=== PATIENT | male | born 1980 | race Caucasian/White ===

== ENCOUNTER 2017-06-09 18:31 | Emergency (ER) | payer OTHER ==
[~2017-06-09] VITALS: Ht 180.3 cm; Wt 115.9 kg
[~2017-06-09 18:31] MED LIST: AUGM875T27 PO; LEVO10VL PO; MULTCAP PO; NEXI40GR PO; PRAZ1CAP PO; PRAZ5CAP PO; TOPA25TA PO; TOPIPOW3 PO; TRAZ100T2 PO; VENL50TA2 PO
[2017-06-09] MEDS ORDERED: OXYC-517 (18:58)
[2017-06-09] MEDS ORDERED: ZOLO100T (18:58)
[2017-06-09] MEDS ORDERED: BUPR150T5 (18:58)
[2017-06-09] MEDS ORDERED: CYCL10TA (18:58)
[2017-06-09] MEDS ORDERED: PRAZ2CAP (18:58)
[2017-06-09] MEDS ORDERED: PROT1TAB2 (18:58)
[2017-06-09] MEDS ORDERED: TYLE325T5 (18:58)
[2017-06-09] MEDS ORDERED: TESTOSTERON (18:58)
[2017-06-09] MEDS ORDERED: LIPI80TA (18:58)
[2017-06-09] MEDS ORDERED: HYDROmorphone HCL 1 MG/ML SYRINGE (J1170) IM ONE (21:15)
[2017-06-09] MEDS ORDERED: CEPHALEXIN 500 MG CAP PO ONE (21:15)
[2017-06-09 21:31] LABS: BASO # 0.1 10^3/uL (0.0-0.2); BASO % 0.8 % (0.0-1.0); EOS # 0.2 10^3/uL (0.0-0.50); EOS % 2.5 % (0.0-3.0); IMMATURE GRANULOCYTE % 0.2 % (0-0); LYMPH # 2.4 10^3/uL (1.5-4.5); LYMPH % 28.5 % (24.0-44.0); MEAN CORPUSCULAR HEMOGLOBIN 29.1 pg (27.0-33.0); MEAN CORPUSCULAR HGB CONC 34.7 g/dl (32.0-36.5); MEAN CORPUSCULAR VOLUME 84.1 fl (80.0-96.0); MONO # 0.6 10^3/uL (0.0-0.8); MONO % 6.5 % (0.0-5.0); NEUTROPHILS # 5.2 10^3/uL (1.8-7.7); NEUTROPHILS % 61.5 % (36.0-66.0); PLATELET COUNT, AUTOMATED 223 10^3/uL (150-450); WHITE BLOOD COUNT 8.5 10^3/uL (4.0-10.0)
[2017-06-09 21:58] VITALS: BP 142/86
[2017-06-09] MEDS ORDERED: KEFL500C17 PO (22:33)
== END 2017-06-09 22:41 | disposition home or self-care (01) ==
LOC: M ED 18:31
DX: G89.18 Other acute postprocedural pain (principal); I10 Essential (primary) hypertension; E03.9 Hypothyroidism, unspecified; F41.9 Anxiety disorder, unspecified; F33.9 Major depressive disorder, recurrent, unspecified; F43.10 Post-traumatic stress disorder, unspecified; G43.909 Migraine, unspecified, not intractable, without status migrainosus; Z79.899 Other long term (current) drug therapy; Z98.890 Other specified postprocedural states
CPT/HCPCS: 85025; 96372; 99282; J1170

== ENCOUNTER 2017-10-19 20:03 | Emergency (ER) | payer OTHER | END 2017-10-19 21:42 | disposition home or self-care (01) | LOC: M ED 20:03 | DX: Z48.89 Encounter for other specified surgical aftercare (principal); I10 Essential (primary) hypertension; K21.9 Gastro-esophageal reflux disease without esophagitis; E03.9 Hypothyroidism, unspecified; F41.9 Anxiety disorder, unspecified; F33.9 Major depressive disorder, recurrent, unspecified; F43.10 Post-traumatic stress disorder, unspecified; Z79.899 Other long term (current) drug therapy; Z79.890 Hormone replacement therapy | CPT/HCPCS: 99283 ==

== ENCOUNTER → 2020-11-07 | Outpatient (CLI) | payer OTHER ==
[~2020-11-07] MED LIST changes: +BUPR150T5; +CYCL-707; +KEFL500C17 PO; +LEVO100I PO; -LEVO10VL PO; +LIPI80TA; +OXYC-517; +PRAZ2CAP; +PROT1TAB2; +TESTOSTERON; +TYLE325T5; +ZOLO100T
--- NOTE | 2020-11-07 16:14 | REP ---
INDICATION: PAIN LT SHOULDER. COMPARISON: None. TECHNIQUE: Axial, oblique coronal and oblique sagittal imaging planes utilized. T1 and T2 weighted scans are obtained in the usual fashion with without fat saturation. FINDINGS: Glenohumeral and acromioclavicular joints are normally aligned. Cortical and medullary bone signal intensity are normal except for some marrow edema on either side of hypertrophied AC joint. There is a small quantity of fluid in the AC joint. Findings consistent with early osteoarthritis. No evidence of occult fracture. No significant glenohumeral effusion is seen. Superior labrum appears intact. The anterior cartilaginous labrum appears to be unusually large. Developmental variant versus displaced labral cartilage. The glenoid and humeral head articular cartilage appear intact. No paralabral cyst is seen. The infraspinatus and subscapularis tendons appear intact. There is no evidence of supraspinatus cuff tear. There is some tendinitis tendinosis change in the distal supraspinatus tendon however. IMPRESSION: Anterior glenoid labral cartilage is unusually large versus redundant synovium in the anterior aspect of the joint on axial images. Tendinitis tendinosis change in the supraspinatus tendon. Early osteoarthritic hypertrophy and marrow edema in the AC joint. <Electronically signed by Cali Amin > 11/07/20 [id number]
== END ==
LOC: M PLARAD 13:48
PROVIDERS: ATTEND Physician Assistant Medical
DX: M25.512 Pain in left shoulder (principal)

== ENCOUNTER → 2020-12-31 | Outpatient (CLI) | payer OTHER ==
--- NOTE | 2021-01-02 00:52 | ECWPNPC ---
PATIENT NAME: ROB OWENS : 1980 GENDER: MALE VISIT DATE: 12/31/2020 DISCHARGE DATE: 12/31/20921 VISIT LOCKED DATE TIME: PHYSICIAN: DEJUAN DAWSON RESOURCE: DEJUAN DAWSON REASON FOR APPOINTMENT 1. SHOULDER HISTORY OF PRESENT ILLNESS DEPRESSION SCREENING: PHQ-9 LITTLE INTEREST OR PLEASURE IN DOING THINGSSEVERAL DAYS FEELING DOWN, DEPRESSED, OR HOPELESSSEVERAL DAYS TROUBLE FALLING OR STAYING ASLEEP, OR SLEEPING TOO MUCHNEARLY EVERY DAY FEELING TIRED OR HAVING LITTLE ENERGYNEARLY EVERY DAY POOR APPETITE OR OVEREATING SEVERAL DAYS FEELING BAD ABOUT YOURSELF-OR THAT YOU ARE A FAILURE OR HAVE LET YOURSELF OR YOUR FAMILY DOWN SEVERAL DAYS TROUBLE CONCENTRATING ON THINGS, SUCH READING THE NEWSPAPER OR WATCHING TELEVISION MORE THAN HALF THE DAYS MOVING OR SPEAKING SO SLOWLY THAT OTHER PEOPLE COULD HAVE NOTICED. OR THE OPPOSITE- BEING SO FIDGETY OR RESTLESS THAT YOU HAVE BEEN MOVING AROUND A LOT MORE THAN USUALNOT AT ALL THOUGHTS THAT YOU WOULD BE BETTER OFF , OR OF HURTING YOURSELF IN SOME WAY?NOT AT ALL TOTAL SCORE:12 INTERPRETATIONMODERATE DEPRESSION PHQ-2 (2015 EDITION) LITTLE INTEREST OR PLEASURE IN DOING THINGS?SEVERAL DAYS FEELING DOWN, DEPRESSED, OR HOPELESS?SEVERAL DAYS TOTAL SCORE2 GENERAL: 40-YEAR-OLD GENTLEMAN [facility] [place] [facility]. THIS BEGAN APPROXIMATELY ONE YEAR AGO WITHOUT PRECIPITATING EVENT. REPORTING LEVEL VIII/X VAS PAIN THAT IS CONSTANT AND ACHING EVEN AT REST. PAIN IS AGGRAVATED WITH RANGE OF JOINT MOTION OF THE ARM. PAIN IS SPECIFICALLY OVER THE SHOULDER AND DOES NOT RADIATE INTO SCAPULAR AREA. - - -. FALL RISK SCREENING: SCREENING : NO FALLS REPORTED IN THE LAST YEAR , : NO FALLS REPORTED IN THE LAST YEAR. PAIN SCREENING: PATIENT HAS A COMPLAINT OF ACUTE OR CHRONIC PAIN :YES LOCATION OF PAIN:LEFT SHOULDER FEELS ALOT OF PAIN IN , LOW BACK INTENSITY OF PAIN (SCALE OF 1 TO 10):8 WHAT DOES YOUR PAIN FEEL LIKE:ACHING, BURNING, SORE DURATION:CONTINOUS, CONSTANT, ALL DAY PAIN IS INCREASED BY:ACTIVITIES PAIN IS DECREASED BY:USE OF PAIN MEDICATIONS, OTHERS ICE/HEAT NURSING NOTE: - - -. PAIN CENTER INTAKE QUESTIONS: DO YOU HAVE A HISTORY OF MRSA? :NO DO YOU TAKE A BLOOD THINNERS? :NO DO YOU HAVE ANY BLEEDING DISORDERS? :NO ANY NEW NUMBNESS OR WEAKNESS IN YOUR LEGS OR ARMS? :YES WEAKNESS LEFT ARM " FROM THE NECK TO ELBOW AREA " ANY PACEMAKER,DEFIBRILLATOR, OR DORSAL COLUMN STIMULATOR? :NO DO YOU HAVE ANY RASHES OR OPEN SORES? :NO ARE YOU ALLERGIC TO IV DYE? :NO ARE YOU DIABETIC? :NO ANY NEW PROBLEMS WITH YOUR MEDICATIONS? :NO HAVE YOU RECEIVED A VACCINE IN THE PAST 30 DAYS? :YES 2ND COVID SHOT 12/11/2020 DO YOU PLAN TO RECEIVE A VACCINE IN THE NEXT 21 DAYS? :NO DO YOU NEED ANY PRESCRIPTION? :NO DO YOU TAKE ANY IMMUNOSUPPRESSIVE MEDICATIONS? :NO IS THERE A CHANCE YOU COULD BE ? :NO ARE YOU BREAST FEEDING? :NO CURRENT MEDICATIONS TAKING ATORVASTATIN CALCIUM 80 MG TABLET 1 TABLET ORALLY ONCE A DAY TAKING CHOLECALCIFEROL 25 MCG (1000 UT) CAPSULE 1 CAPSULE ORALLY ONCE A DAY TAKING CYCLOBENZAPRINE HCL 10 MG TABLET 1 TABLET AT BEDTIME NEEDED ORALLY ONCE A DAY TAKING DICLOFENAC 1% CREAM CAPSULE 1 CAPSULE NEEDED ORALLY GEL NEEDED FOUR TIMES A DAY, NOTES: GEL TAKING LEVOTHYROXINE SODIUM 125 MCG TABLET 1 TABLET IN THE MORNING ON AN EMPTY STOMACH ORALLY ONCE A DAY TAKING PANTOPRAZOLE SODIUM 40 MG TABLET DELAYED RELEASE 1 TABLET ORALLY ONCE A DAY TAKING PRAZOSIN HCL 5 MG CAPSULE 1 CAPSULE AT BEDTIME ORALLY ONCE A DAY TAKING SERTRALINE HCL 100 MG TABLET 1 TABLET ORALLY ONCE A DAY TAKING TOPIRAMATE 50 MG TABLET 1 TABLET ORALLY ONCE A DAY MEDICATION LIST REVIEWED AND RECONCILED WITH THE PATIENT PAST MEDICAL HISTORY BACK PAIN LEFT SHOULDER PAIN POST TRAUMATIC STRESS DISORDER SLEEP APNEA SYNDROMES TINNITUS BURSITIS ALLERGIES N.K.D.A. SURGICAL HISTORY CARPAL TUNNEL RIGHT HAND 2017 CYST REMOVED ON LEFT HAND 2018 FAMILY HISTORY FATHER: ALIVE MOTHER: UNKNOWN SON(S): ALIVE DAUGHTER(S): ALIVE 1 SON(S) , 1 DAUGHTER(S) - HEALTHY. ONE HALF BROTHER. SOCIAL HISTORY GENERAL: TOBACCO USE ARE YOU A:NONSMOKER LATEX QUESTIONNAIRE LATEX ALLERGY : HAVE YOU EVER DEVELOPED ANY TYPE OF REACTION AFTER HANDLING LATEX PRODUCTS SUCH RUBBER GLOVES, CONDOMS, DIAPHRAGMS, BALLOONS, SOCKS, OR UNDERWEAR?NO LATEX ALLERGY : HAVE YOU EVER DEVELOPED ANY TYPE OF REACTION DURING OR AFTER DENTAL APPOINTMENT, VAGINAL/RECTAL EXAMINATION, SURGICAL PROCEDURE, OR ANY OTHER EXPOSURE?NO LATEX RISK : HAVE YOU EVER HAD ANY DIFFICULTY BREATHING OR HIVES AFTER EATING OR HANDLING ANY FRUITS, OR VEGETABLES; SUCH KIWI, BANANAS, STONE FRUITS, OR CHESTNUTSNO LATEX RISK : DO YOU HAVE A PREVIOUS PERSONAL HISTORY OF MORE THAN NINE SURGERIES, SPINA BIFIDA, OR REPEATED CATHERIZATIONS? NO LATEX RISK : ARE YOU FREQUENTLY EXPOSED TO LATEX PRODUCTS IN YOUR OCCUPATION?NO DATE ASKED : 12/31/2020 ALCOHOL USE: NO. RECREATIONAL DRUG USE DRUG USE?NO LANGUAGE LANGUAGES SPOKEN:CHADIAN LEARNING BARRIERS / SPECIAL NEEDS BARRIERS TO LEARNING?NO HEARING IMPAIRED?YES :HEARING AIDES " NOT GOOD AT WEARING IT " VISION IMPAIRED?YES :CORRECTIVE LENSES COGNITIVELY IMPAIRED?NO READINESS TO LEARN?YES LEARNING PREFERENCES?YES :HANDOUTS PATIENT STATED THAT HE HAS SHORT TERM MEMORY LEARNING CAPABILITIES PRESENT?YES EMOTIONAL BARRIERS?NO SPECIAL DEVICES?YES :CANE NEEDED STEEL SASH ERECTOR NEEDED?NO HOSPITALIZATION/MAJOR DIAGNOSTIC PROCEDURE NO HOSPITALIZATION HISTORY. REVIEW OF SYSTEMS CONSTITUTIONAL: ANY RECENT FEVER NO . CHILLS NO . WEIGHT CHANGE OF UNKNOWN REASONS NO . GASTROENTEROLOGY: NEW UNEXPLAINABLE CHANGES IN BOWEL CONTROL NO . CONSTIPATION NO . GENITOURINARY: ANY NEW CHANGE IN BLADDER CONTROL? NO . NEUROLOGY: NEW ONSET DIZZINESS OR NEUROLOGICAL CHANGES NOT MENTIONED NO . NEW NUMBNESS OR PAIN PATTERNS NOT MENTIONED AND PERTINENT TO TODAY'S VISIT NO . CARDIOLOGY: NEW CHEST PRESSURE NO . PATIENT DENIES NO . RESPIRATORY: UNEXPLAINABLE COUGH NO . NEW SHORTNESS OF BREATH NO . VITAL SIGNS WT 278.2 LBS, HT 60 IN, BMI 54.33 INDEX, BP 137/83 MM HG, HR 90 /MIN, RR 18 /MIN, TEMP 98.0 F, OXYGEN SAT % 96%, SAFE IN ENV? (Y/N) YES, NA INITIALS AW 0833T.ELVA WEEKS. EXAMINATION GENERAL EXAMINATION: GENERALNO ACUTE DISTRESS, WELL NOURISHED AND HYDRATED. PSYCH FLAT AFFECT. NECK:NO LYMPHADENOPATHY, SUPPLE, NO THYROMEGALLY. LUNGS:CLEAR TO AUSCULTATION BILATERALLY, NO WHEEZES, RHONCHI, RALES. HEART:NO MURMURS, REGULAR RATE AND RHYTHM. MUSCULOSKELETAL: LEFT SHOULDER-TENDER WITH PALPATION.MILD SWELLING APPRECIATED .NO REDDNESS. MUSCLE STRENGTH TESTING 5/5 BILATERAL UPPER EXTREMITIES.ROJM FULL BUT WITH INCEASE IN PAIN ABOVE SHOULDER HEIGHT WITH LEFT ARM.. ASSESSMENTS LEFT SHOULDER TENDONITIS - M77.8 (PRIMARY) TREATMENT LEFT SHOULDER TENDONITIS START KETOROLAC TROMETHAMINE TABLET, 10 MG, 1 TABLET WITH FOOD OR MILK NEEDED, ORALLY, EVERY 6 HRS, 5 DAY(S), 20 [facility]ERRAL [facility] REASON:1 YEAR HX OF LEFT SHOULDER PAIN DESCRIBED CONSTANT AND INCREASES WITH ROJM OR USE OF LEFT ARM PROCEDURE CODES FA211 ESTABILISHED PATIENT [facility] CHARGE DISPOSITION & COMMUNICATION FOLLOW UP 2 MONTHS (REASON: FOLLOW UP ORTHOPEDIC/DR. Miguelito ORR REFERRAL) ELECTRONICALLY SIGNED BY ROX RANDHAWA ON 01/01/2021 AT 09:50 AM EDT DISCLAIMER : THIS IS A VISIT SUMMARY EXTRACTED FROM THE [employer] CHART. IT IS NOT A COPY OF THE [employer] PROGRESS NOTE. NATHANIEL
== END ==
LOC: M PAIN 08:30
PROVIDERS: ATTEND Nurse Practitioner Family
DX: M77.8 Other enthesopathies, not elsewhere classified (principal); M25.512 Pain in left shoulder; F43.10 Post-traumatic stress disorder, unspecified; G47.30 Sleep apnea, unspecified; Z79.899 Other long term (current) drug therapy

== ENCOUNTER → 2021-03-01 | Outpatient (CLI) | payer OTHER ==
--- NOTE | 2021-03-02 04:09 | ECWPNPC ---
PATIENT NAME: ROB OWENS : 1980 GENDER: MALE VISIT DATE: 03/01/2021 DISCHARGE DATE: 03/01/21 1128 VISIT LOCKED DATE TIME: PHYSICIAN: DEJUAN DAWSON RESOURCE: DEJUAN DAWSON REASON FOR APPOINTMENT 1. FOLLOW UP ORTHOPEDIC/DR. Miguelito ORR REFERRAL HISTORY OF PRESENT ILLNESS GENERAL: ROB IS BEING EVALUATED FOR PERSISTENT LEFT SHOULDER PAIN. MY RECOMMENDATION AT INITIAL EVALUATION WAS TO HAVE AN ORTHOPEDIC EVALUATION. PATIENT STATES THAT [facility] NEEDED TO SEND IN REFERRAL. HE DOES NOT HAVE TRIGGER POINTS OR ANYTHING THAT WE CAN HELP WITH. HE HAD AN INJECTION BY ORTHOPEDICS AT THE [facility] INTO HIS LEFT SHOULDER RECENTLY THAT GAVE HIM A COUPLE DAYS OF IMPROVEMENT. -. FALL RISK SCREENING: SCREENING : NO FALLS REPORTED IN THE LAST YEAR. PAIN SCREENING: PATIENT HAS A COMPLAINT OF ACUTE OR CHRONIC PAIN :YES LOCATION OF PAIN:LEFT SHOULDER INTENSITY OF PAIN (SCALE OF 1 TO 10):9 WHAT DOES YOUR PAIN FEEL LIKE:BURNING, CONTINOUS, SHARP, TENDER, SORE DURATION:CONTINOUS, CONSTANT, ALL DAY PAIN IS INCREASED BY:ACTIVITIES PAIN IS DECREASED BY:OTHERS NOTHING REALLY, BIO OIL NURSING NOTE: -. PAIN CENTER INTAKE QUESTIONS: DO YOU HAVE A HISTORY OF MRSA? :NO DO YOU TAKE A BLOOD THINNERS? :NO DO YOU HAVE ANY BLEEDING DISORDERS? :NO ANY NEW NUMBNESS OR WEAKNESS IN YOUR LEGS OR ARMS? :YES WEAKNESS LEFT ARM " FROM THE NECK TO ELBOW AREA " ANY PACEMAKER,DEFIBRILLATOR, OR DORSAL COLUMN STIMULATOR? :NO DO YOU HAVE ANY RASHES OR OPEN SORES? :NO ARE YOU ALLERGIC TO IV DYE? :NO ARE YOU DIABETIC? :NO ANY NEW PROBLEMS WITH YOUR MEDICATIONS? :NO HAVE YOU RECEIVED A VACCINE IN THE PAST 30 DAYS? :YES 2ND COVID SHOT 12/11/2020 DO YOU PLAN TO RECEIVE A VACCINE IN THE NEXT 21 DAYS? :NO DO YOU NEED ANY PRESCRIPTION? :NO DO YOU TAKE ANY IMMUNOSUPPRESSIVE MEDICATIONS? :NO IS THERE A CHANCE YOU COULD BE ? :NO ARE YOU BREAST FEEDING? :NO CURRENT MEDICATIONS TAKING ATORVASTATIN CALCIUM 80 MG TABLET 1 TABLET ORALLY ONCE A DAY TAKING CHOLECALCIFEROL 25 MCG (1000 UT) CAPSULE 1 CAPSULE ORALLY ONCE A DAY TAKING CYCLOBENZAPRINE HCL 10 MG TABLET 1 TABLET AT BEDTIME NEEDED ORALLY ONCE A DAY TAKING DICLOFENAC 1% CREAM CAPSULE 1 CAPSULE NEEDED ORALLY GEL NEEDED FOUR TIMES A DAY, NOTES: GEL TAKING LEVOTHYROXINE SODIUM 125 MCG TABLET 1 TABLET IN THE MORNING ON AN EMPTY STOMACH ORALLY ONCE A DAY TAKING PANTOPRAZOLE SODIUM 40 MG TABLET DELAYED RELEASE 1 TABLET ORALLY ONCE A DAY TAKING PRAZOSIN HCL 5 MG CAPSULE 1 CAPSULE AT BEDTIME ORALLY ONCE A DAY TAKING SERTRALINE HCL 100 MG TABLET 1 TABLET ORALLY ONCE A DAY TAKING TOPIRAMATE 50 MG TABLET 1 TABLET ORALLY ONCE A DAY TAKING KETOROLAC TROMETHAMINE 10 MG TABLET 1 TABLET WITH FOOD OR MILK NEEDED ORALLY EVERY 6 HRS MEDICATION LIST REVIEWED AND RECONCILED WITH THE PATIENT PAST MEDICAL HISTORY BACK PAIN LEFT SHOULDER PAIN POST TRAUMATIC STRESS DISORDER SLEEP APNEA SYNDROMES TINNITUS BURSITIS 2ND COVID SHOT 12/11/2020 ALLERGIES N.K.D.A. SOCIAL HISTORY GENERAL: TOBACCO USE ARE YOU A:NONSMOKER LATEX QUESTIONNAIRE LATEX ALLERGY : HAVE YOU EVER DEVELOPED ANY TYPE OF REACTION AFTER HANDLING LATEX PRODUCTS SUCH RUBBER GLOVES, CONDOMS, DIAPHRAGMS, BALLOONS, SOCKS, OR UNDERWEAR?NO LATEX ALLERGY : HAVE YOU EVER DEVELOPED ANY TYPE OF REACTION DURING OR AFTER DENTAL APPOINTMENT, VAGINAL/RECTAL EXAMINATION, SURGICAL PROCEDURE, OR ANY OTHER EXPOSURE?NO LATEX RISK : HAVE YOU EVER HAD ANY DIFFICULTY BREATHING OR HIVES AFTER EATING OR HANDLING ANY FRUITS, OR VEGETABLES; SUCH KIWI, BANANAS, STONE FRUITS, OR CHESTNUTSNO LATEX RISK : DO YOU HAVE A PREVIOUS PERSONAL HISTORY OF MORE THAN NINE SURGERIES, SPINA BIFIDA, OR REPEATED CATHERIZATIONS? NO LATEX RISK : ARE YOU FREQUENTLY EXPOSED TO LATEX PRODUCTS IN YOUR OCCUPATION?NO DATE ASKED : 03/01/2021 ALCOHOL USE: NO. 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 CHILLS NO . WEIGHT CHANGE OF UNKNOWN REASONS NO . GASTROENTEROLOGY: NEW UNEXPLAINABLE CHANGES IN BOWEL CONTROL NO . CONSTIPATION NO . GENITOURINARY: ANY NEW CHANGE IN BLADDER CONTROL? NO . NEUROLOGY: NEW ONSET DIZZINESS OR NEUROLOGICAL CHANGES NOT MENTIONED NO . NEW NUMBNESS OR PAIN PATTERNS NOT MENTIONED AND PERTINENT TO TODAY'S VISIT NO . CARDIOLOGY: NEW CHEST PRESSURE NO . PATIENT DENIES NO . RESPIRATORY: UNEXPLAINABLE COUGH NO . NEW SHORTNESS OF BREATH NO . VITAL SIGNS WT 266.2 LBS, HT 60 IN, BMI 51.98 INDEX, BP 137/79 MM HG, HR 70 /MIN, RR 18 /MIN, TEMP 97.4 F, OXYGEN SAT % 97%, NA INITIALS SC 11:14. EXAMINATION GENERAL EXAMINATION: GENERALNO ACUTE DISTRESS, WELL NOURISHED AND HYDRATED. PSYCH FLAT AFFECT. NECK:NO LYMPHADENOPATHY, SUPPLE, NO THYROMEGALLY. LUNGS:CLEAR TO AUSCULTATION BILATERALLY, NO WHEEZES, RHONCHI, RALES. HEART:NO MURMURS, REGULAR RATE AND RHYTHM. MUSCULOSKELETAL: LEFT SHOULDER-TENDER WITH PALPATION.MILD SWELLING APPRECIATED .NO REDDNESS. MUSCLE STRENGTH TESTING 5/5 BILATERAL UPPER EXTREMITIES.ROJM FULL BUT WITH INCEASE IN PAIN ABOVE SHOULDER HEIGHT WITH LEFT ARM.. ASSESSMENTS LEFT SHOULDER TENDONITIS - M77.8 (PRIMARY) TREATMENT LEFT SHOULDER TENDONITIS NOTES: CONTINUE CARE PER [facility] FOR LEFT SHOULDER PAIN. PATIENT WILL CALL US IF AFTER EVALUATION BY ORTHOPEDIC TEAM HE CONTINUES TO SUFFER FROM PERSISTENT LEFT SHOULDER PAIN. PROCEDURE CODES FA211 ESTABILISHED PATIENT [facility] CHARGE DISPOSITION & COMMUNICATION FOLLOW UP PATIENT WILL CALL IF NEEDED (REASON: LEFT SHOULDER PAIN) ELECTRONICALLY SIGNED BY ROX RANDHAWA ON 03/01/2021 AT 12:57 PM EDT DISCLAIMER : THIS IS A VISIT SUMMARY EXTRACTED FROM THE [employer] CHART. IT IS NOT A COPY OF THE [employer] PROGRESS NOTE. NATHANIEL
== END ==
LOC: M PAIN 11:00
PROVIDERS: ATTEND Nurse Practitioner Family
DX: M77.8 Other enthesopathies, not elsewhere classified (principal); Z86.59 Personal history of other mental and behavioral disorders; E66.01 Morbid (severe) obesity due to excess calories; Z68.43 Body mass index [BMI] 50.0-59.9, adult; Z79.899 Other long term (current) drug therapy

== ENCOUNTER → 2021-05-08 | Outpatient (CLI) | payer OTHER ==
[~2021-05-08] MED LIST changes: +VITA200028 PO; +potassium PO
== END ==
LOC: M PAIN 08:30
PROVIDERS: ATTEND Anesthesiology
DX: M51.16 Intervertebral disc disorders with radiculopathy, lumbar region (principal); M25.512 Pain in left shoulder; F43.10 Post-traumatic stress disorder, unspecified; G47.30 Sleep apnea, unspecified; Z79.899 Other long term (current) drug therapy

== ENCOUNTER → 2021-05-17 | Outpatient (CLI) | payer OTHER ==
[~2021-05-17] MED LIST changes: -VITA200028 PO; -potassium PO
[2021-05-17 14:01] LABS: INR 1.07; PROTHROMBIN TIME 14.3 SECONDS (12.7-14.5)
[2021-05-17 14:20] LABS: BLOOD UREA NITROGEN 25 MG/DL (7-18); CALCIUM LEVEL 9.4 MG/DL (8.5-10.1); CARBON DIOXIDE LEVEL 27 MEQ/L (21-32); CHLORIDE LEVEL 106 MEQ/L (98-107); CREATININE FOR GFR 1.37 MG/DL (0.70-1.30); GLOMERULAR FILTRATION RATE > 60.0 (>60); GLUCOSE, FASTING 87 MG/DL (70-100); POTASSIUM SERUM 4.1 MEQ/L (3.5-5.1); SODIUM LEVEL 140 MEQ/L (136-145)
== END ==
LOC: M LAB 12:56
PROVIDERS: ATTEND Nurse Practitioner Family
DX: Z01.812 Encounter for preprocedural laboratory examination (principal); Z20.822 Contact with and (suspected) exposure to COVID-19
CPT/HCPCS: 36415; 80048; 85610; U0003

== ENCOUNTER → 2021-05-17 | Outpatient (CLI) | payer OTHER | LOC: M LABSMTC 09:07 | PROVIDERS: ATTEND Anesthesiology | DX: Z01.812 Encounter for preprocedural laboratory examination (principal); Z20.822 Contact with and (suspected) exposure to COVID-19 ==

== ENCOUNTER 2021-05-22 06:12 | Day surgery (SDC) | payer OTHER ==
[~2021-05-22] VITALS: Ht 180.3 cm; Wt 113.4 kg
[2021-05-22] MEDS ORDERED: VITA200028 PO (06:27)
[2021-05-22] MEDS ORDERED: potassium PO (06:27)
[2021-05-22] MEDS ORDERED: ceFAZolin 2 GM/D5W 50 ML IV BAG (J0690 PER 500MG) As Ordered ONE (06:38)
[2021-05-22] MEDS ORDERED: fentaNYL 100 MCG/2 ML INJECTION (J3010) IV PRN ×2 (07:01→10:10)
[2021-05-22] MEDS ORDERED: ACETAMINOPHEN 1000MG 100ML IV BTL (OFIRMEV) (J0131 PER 10MG) As Ordered ONE (07:03)
[2021-05-22] MEDS ORDERED: fentaNYL 100 MCG/2 ML INJECTION (J3010) As Ordered ONE ×2 (07:04→07:16)
[2021-05-22] MEDS ORDERED: dexameTHASONE 4 MG/ML 1ML VIAL (J1100 PER 1MG) As Ordered ONE (07:05)
[2021-05-22] MEDS ORDERED: ONDANSETRON 4MG/2ML VIAL As Ordered ONE (07:05)
[2021-05-22] MEDS ORDERED: PHENYLephrine 500MCG 5ML (100MCG/ML) SYRINGE As Ordered ONE (07:05)
[2021-05-22] MEDS ORDERED: LIDOCAINE 2% 100MG/5ML SDV (FOR ANES.) As Ordered ONE (07:05)
[2021-05-22] MEDS ORDERED: ROCURONIUM BROMIDE 50 MG/5 ML VIAL As Ordered ONE ×2 (07:05→08:21)
[2021-05-22] MEDS ORDERED: ePHEDrine SULFATE 25 MG/5 ML(5MG/ML) SYRINGE As Ordered ONE (07:05)
[2021-05-22] MEDS ORDERED: SUGAMMADEX SODIUM 500 MG/5 ML VIAL (BRIDION) As Ordered ONE (07:05)
[2021-05-22] MEDS ORDERED: propofoL 200 MG/20 ML VIAL As Ordered ONE (07:05)
[2021-05-22] MEDS ORDERED: ceFAZolin SOD 2 GM in IV 1 EA IV ONE (07:15)
[2021-05-22] MEDS ORDERED: MIDAZOLAM INJ 2MG/2ML VIAL (J2250 PER 1MG) As Ordered ONE (07:16)
[2021-05-22] MEDS ORDERED: LIDOCAINE 1% MDV 20ML VIAL XX ONE (07:20)
[2021-05-22] MEDS ORDERED: ROPIvacaine 0.5% 30ML INJECTION (J2795 PER 1MG) XX ONE (07:20)
[2021-05-22] MEDS ORDERED: dexameTHASONE 10MG/1ML VIAL PRES.FREE (J1100 PER 1MG) XX ONE (07:20)
[2021-05-22] MEDS ORDERED: LR 1,000 ML IV ONE (07:20)
[2021-05-22] MEDS: MIDAZOLAM INJ 2MG/2ML VIAL (J2250 PER 1MG) IV PRN ×2 (07:23→07:24)
[2021-05-22] MEDS ORDERED: EPINEPHrine INJ 1 MG/ML 1ML AMP As Ordered ONE (07:43)
[2021-05-22] MEDS ORDERED: oxyCODONE 5MG TAB PO PRN (10:10)
[2021-05-22] MEDS ORDERED: HYDROMORPHONE HCL 0.5 MG/ 0.5 ML SYRINGE (J1170 PER 1) IV PRN (10:10)
[2021-05-22] MEDS ORDERED: LR 1,000 ML IV SCH ×2 (10:10)
[2021-05-22] MEDS ORDERED: ONDANSETRON 4MG/2ML VIAL IV PRN ×2 (10:10→10:15)
[2021-05-22] MEDS ORDERED: MORPHINE 2 MG/ML 1ML VIAL (J2270) IV PRN (10:15)
[2021-05-22] MEDS ORDERED: PERCOCET 5MG/325MG TAB PO PRN (10:15)
[2021-05-22] MEDS ORDERED: ACETAMINOPHEN TAB 650MG DOSE (2X325MG) PO PRN (10:15)
[2021-05-22 11:40] VITALS: BP 128/79
--- NOTE | 2021-05-22 12:48 | ROOPDOC ---
[facility] Report Of Operation Report of Operation DATE OF PROCEDURE: 05/22/21 PREPROCEDURE DIAGNOSES: Left shoulder impingement POSTPROCEDURE DIAGNOSES: Same. PROCEDURE PERFORMED: Left shoulder arthroscopy, subacromial decompression, distal clavicle excision, debridement of labrum. SURGEON: Dr. Shen Sosa MD INCOME TAX ADJUSTER: ANESTHESIA: Dr. Lee general anesthetic and block. ESTIMATED BLOOD LOSS: Approximately 50 mL. COMPLICATIONS: None. REMARKS: None. FINDINGS: Sublabral foramen, under 50% fraying under surface anterior leading edge SS tendon SPECIMENS REMOVED: None PROCEDURE NOTE: This 41-year-old man had signs and symptoms consistent with impingement syndrome as well as pain seeming to arise from the acromioclavicular joint. There is also signs of hypertrophic labrum on the MRI. He was to go ahead with surgery. I did rediscussed the pros and cons risks and benefits of surgery versus nonsurgical management. I marked the left upper extremity. He had no further questions.. DESCRIPTION OF PROCEDURE: Patient was brought to the operating room theater. He was administered general anesthetic. He was administered 2 g IV Ancef prior to start of the case. Patient placed left lateral decubitus beanbag positioner axillary roll placed all bony prominences properly padded. SCDs on the legs. Limb prepped and draped in usual sterile fashion with chlorhexidine-based prep solution allowing over 3 minutes drying time prior to draping. 10 pounds traction was used with the arm in 45 degrees of abduction. Preoperative timeout performed to confirm the site patient and surgery. I began by making a standard posterior arthroscopy portal inserting the arthroscope into the intra-articular portion of the shoulder. I performed a thorough diagnostic arthroscopy. Subscapularis appeared normal. There was a sublabral foramen. I gently debrided this as it appeared unstable. There is some minor amount of fraying at the superior labrum type I SLAP tear biceps root appeared stable biceps was normal no synovitis no tears. Biceps anchor as well as biceps groove appeared stable. Some slight undersurface anterior leading edge supraspinatus tendon fraying gently debrided through an anterior portal that I created just posterior to the biceps tendon through an inside-out spinal needle localization through the rotator interval. There was some minor amount of cracking posterior labrum. Stable. No loose bodies. Cartilage on the glenoid and humeral head were normal. I then withdrew the scope inserted in subacromial space. There is a large amount of bursitis adherent I remove the bursitis and performed a complete bursectomy into the lateral gutters. I made an accessory lateral portal. I then performed subacromial decompression for thickness of approximately 4 mm down to smooth flat margins. I probed the rotator cuff tendons no obvious full-thickness tears. I then identified the lower distal end of the clavicle. I used the anterior previous portal. I performed a distal clavicle excision using the miquel instrument for a length of approximately 4 mm. I then inserted the arthroscope into the AC joint anteriorly to confirm proper debridement. Arthroscopy pictures were taken throughout the case and saved onto the system. Case was terminated. Arthroscope withdrawn. All portals cleaned with wet and dry dressing followed application of Steri-Strips Adaptic 4 by 8 gauze abdominal pad dressing cloth tape and a sling. Patient woken up from general anesthetic transferred off the operating room table and taken postanesthetic care unit in stable condition. All sponge needle instrument counts were correct no complications estimated blood loss 50 cc. Plan to the patient discharged home according to day surgery criteria when they are comfortable. Sling with immediate pendulum exercises as well as hand wrist and elbow exercises follow-up in the office in 2 weeks time. Postoperative wound instructions were given. It was recommended to keep the wound clean and dry. Dressing changes as needed. It was reinforced with the patient that they should call us or be seen immediately for redness, drainage, or fever. Risk factors for harms from taking opioid medications discussed and assessed including but not limited to personal or family history of substance use disorder, anxiety or depression, , age 65 or older, COPD or other underlying respiratory conditions, and renal or hepatic insufficiency. Discussed with patient concerns and determined any harms they may experience or be currently experiencing such as nausea or constipation, feeling sedated or confused, breathing interruptions during sleep, or taking or craving more opioids than prescribed or difficulty controlling use (addiction). Discussed early warning signs of overdose including confusion, sedation, slurred speech, abnormal gait. SHEN SOSA MD May 22, 2021 12:48
== END 2021-05-22 11:47 | disposition home or self-care (01) ==
LOC: M SDC 06:12
PROVIDERS: ATTEND Orthopaedic Surgery Sports Medicine
DX: M75.42 Impingement syndrome of left shoulder (principal); S43.432A Superior glenoid labrum lesion of left shoulder, initial encounter; X58.XXXA Exposure to other specified factors, initial encounter; Y92.89 Other specified places as the place of occurrence of the external cause; I10 Essential (primary) hypertension; E03.9 Hypothyroidism, unspecified; Z87.828 Personal history of other (healed) physical injury and trauma; F41.9 Anxiety disorder, unspecified; F32.9 Major depressive disorder, single episode, unspecified; G43.909 Migraine, unspecified, not intractable, without status migrainosus; G47.30 Sleep apnea, unspecified; R06.83 Snoring; Z79.899 Other long term (current) drug therapy
CPT/HCPCS: 29822; 29824; 29826; 64415; J0131; J0171; J0690; J1100; J2250; J2370; J2405; J2795; J3010

== ENCOUNTER → 2021-06-27 | Outpatient (CLI) | payer OTHER ==
[~2021-06-27] MED LIST changes: +VITA200028 PO; +potassium PO
== END ==
LOC: M LABSMTC 11:33
PROVIDERS: ATTEND Anesthesiology
DX: Z11.52 Encounter for screening for COVID-19 (principal)

== ENCOUNTER → 2021-07-02 | Outpatient (CLI) | payer OTHER ==
[~2021-07-02] MED LIST changes: +ISOVUE-M 300 61% 15ML VIAL As Ordered ONE; +LIDOCAINE 1% SDV 30ML VIAL As Ordered ONE; +diazePAM 5MG TABLET As Ordered ONE; +methylPREDNISolone SUSP 40MG/ML 1ML VIAL (DEPO MEDROL) As Ordered ONE; +oxyCODONE 5MG TAB As Ordered ONE
--- NOTE | 2021-07-03 08:16 | REP ---
INDICATION: LUMBAR EPIDURAL STEROID INJECTION. COMPARISON: None. TECHNIQUE: Three images from C-arm fluoroscopy provided to Dr. Mcgee of the pain clinic. FINDINGS: Initial image shows a needle to the left of midline at the L5-S1 level. 2nd image shows epidural steroid adjacent to the needle and the 3rd image has the needle removed. IMPRESSION: 1. Status post left-sided L5-S1 epidural steroid injection. 2. Fluoroscopy time: 12 seconds. <Electronically signed by Seth Morgan > 07/03/21 2436
== END ==
LOC: M PAIN 14:20
PROVIDERS: ATTEND Anesthesiology
DX: M51.16 Intervertebral disc disorders with radiculopathy, lumbar region (principal); M25.512 Pain in left shoulder; F43.10 Post-traumatic stress disorder, unspecified; G47.30 Sleep apnea, unspecified; Z79.899 Other long term (current) drug therapy
CPT/HCPCS: 62323; J1030; Q9967

== ENCOUNTER → 2021-11-21 | Outpatient (CLI) | payer OTHER ==
[~2021-11-21] MED LIST changes: +BUPR-71; -BUPR150T5; -ISOVUE-M 300 61% 15ML VIAL As Ordered ONE; -LIDOCAINE 1% SDV 30ML VIAL As Ordered ONE; -diazePAM 5MG TABLET As Ordered ONE; -methylPREDNISolone SUSP 40MG/ML 1ML VIAL (DEPO MEDROL) As Ordered ONE; -oxyCODONE 5MG TAB As Ordered ONE
== END ==
LOC: M PAIN 14:45
PROVIDERS: ATTEND Nurse Practitioner Family
DX: M51.16 Intervertebral disc disorders with radiculopathy, lumbar region (principal); M25.512 Pain in left shoulder; F43.10 Post-traumatic stress disorder, unspecified; G47.30 Sleep apnea, unspecified; Z79.899 Other long term (current) drug therapy

== ENCOUNTER → 2023-08-28 | Outpatient (CLI) | payer OTHER | LOC: M PLARAD 09:58 | PROVIDERS: ATTEND Nurse Practitioner Family | DX: Z87.820 Personal history of traumatic brain injury (principal) ==

== ENCOUNTER 2024-06-09 15:45 | Emergency (ER) | payer OTHER ==
[~2024-06-09] VITALS: Ht 180.3 cm; Wt 95.0 kg
[2024-06-09 16:38] LABS: BASO % 0.5 % (0.0-1.0); EOS # 0.1 10^3/uL (0.0-0.5); EOS % 1.5 % (0.0-3.0); HEMATOCRIT 42.2 % (42.0-52.0); HEMOGLOBIN 14.6 g/dl (13.5-17.5); LYMPH # 1.4 10^3/uL (1.5-5.0); LYMPH % 23.4 % (24.0-44.0); MEAN CORPUSCULAR HGB CONC 34.6 g/dl (32.0-36.5); MEAN CORPUSCULAR VOLUME 83.9 fl (80.0-96.0); MONO # 0.4 10^3/uL (0.0-0.8); NEUTROPHILS # 4.2 10^3/uL (1.5-8.5); NEUTROPHILS % 67.4 % (36.0-66.0); PLATELET COUNT, AUTOMATED 228 10^3/uL (150-450); RED BLOOD COUNT 5.03 10^6/uL (4.30-6.10); WHITE BLOOD COUNT 6.2 10^3/uL (4.0-10.0)
[2024-06-09 17:27] LABS: INR 1.07; PARTIAL THROMBOPLASTIN TIME 33.7 SECONDS (24.8-34.2); PROTHROMBIN TIME 13.6 SECONDS (12.5-14.5)
[2024-06-09 17:52] VITALS: BP 135/89; TEMP 97.8; O2SAT 100
== END 2024-06-09 21:00 | disposition left against medical advice (07) ==
LOC: M ED 15:45
DX: Z53.21 Procedure and treatment not carried out due to patient leaving prior to being seen by health care provider (principal)

== ENCOUNTER 2024-09-16 07:44 | Day surgery (SDC) | payer OTHER ==
[~2024-09-16] VITALS: Ht 180.3 cm; Wt 90.4 kg
[~2024-09-16 07:44] MED LIST changes: +ATOR-398 PO; +BUPR-70 PO; -CYCL-707; +CYCL-707 PO; +LEVO100T5 PO; -LIPI80TA; -PRAZ2CAP; +PRAZ2CAP PO; -PROT1TAB2; +PROT1TAB2 PO; +TOPA1TAB PO; -ZOLO100T; +ZOLO100T PO
[2024-09-16 10:30] VITALS: BP 108/64; O2SAT 99
== END 2024-09-16 10:45 | disposition home or self-care (01) ==
LOC: M OPP 07:44
PROVIDERS: ATTEND Surgery
DX: D12.5 Benign neoplasm of sigmoid colon (principal); L64.0 Drug-induced androgenic alopecia; R19.4 Change in bowel habit; G47.39 Other sleep apnea

== ENCOUNTER 2025-07-20 00:41 | Emergency (ER) | payer OTHER ==
[2025-07-20 01:27] LABS: BASO # 0.1 10^3/uL (0.0-0.2); BASO % 0.8 % (0.0-1.0); EOS # 0.1 10^3/uL (0.0-0.5); EOS % 1.5 % (0.0-3.0); LYMPH # 2.1 10^3/uL (1.5-5.0); LYMPH % 29.3 % (24.0-44.0); MONO # 0.5 10^3/uL (0.0-0.8); MONO % 7.1 % (2.0-8.0); NEUTROPHILS # 4.4 10^3/uL (1.5-8.5); NEUTROPHILS % 61.2 % (36.0-66.0); PLATELET COUNT, AUTOMATED 253 10^3/uL (150-450)
[2025-07-20] MEDS: NS (Normal Saline) 0.9% 1,000 ML IV ONE (01:34)
[2025-07-20 01:43] LABS: ETHYL ALCOHOL (ETHANOL) < 0.003 % (0.000-0.010)
[2025-07-20 01:45] LABS: CALCIUM LEVEL 9.3 MG/DL (8.5-10.1); CARBON DIOXIDE LEVEL 26 MMOL/L (20-31); CHLORIDE LEVEL 104 MMOL/L (98-107); CK-MB VALUE MASS < 1.0 NG/ML (<3.6); CPK CREATINE PHOSPHOKINASE 106 U/L (46-171); CREATININE FOR GFR 1.07 MG/DL (0.70-1.30); GLOMERULAR FILTRATION RATE 88.3 (>60); POTASSIUM SERUM 3.5 MMOL/L (3.5-5.1); SODIUM LEVEL 142 MMOL/L (136-145)
[2025-07-20 01:47] LABS: FREE T4 1.06 NG/DL (0.89-1.76)
[2025-07-20 03:10] LABS: CK-MB VALUE MASS 2.6 NG/ML (<3.6)
[2025-07-20 03:24] LABS: CPK CREATINE PHOSPHOKINASE 95 U/L (46-171); MB/CK RELATIVE INDEX 2.73 (< OR =4)
[2025-07-20 04:27] LABS: AMPHETAMINES LEVEL URINE NEGATIVE (NEGATIVE); BARBITURATES URINE NEGATIVE (NEGATIVE); BENZODIAZEPINES URINE NEGATIVE (NEGATIVE); COCAINE METABOLITE URINE NEGATIVE (NEGATIVE); METHADONE URINE NEGATIVE (NEGATIVE)
[2025-07-20 04:28] LABS: OPIATES URINE NEGATIVE (NEGATIVE); PHENCYCLIDINE URINE NEGATIVE (NEGATIVE)
[2025-07-20 04:35] LABS: CANNABINOIDS URINE POSITIVE (NEGATIVE)
[2025-07-20 06:30] VITALS: BP 104/66; TEMP 98.2; O2SAT 96
== END 2025-07-20 06:43 | disposition home or self-care (01) ==
LOC: M ED 00:41
DX: I95.1 Orthostatic hypotension (principal); F12.10 Cannabis abuse, uncomplicated; Z79.899 Other long term (current) drug therapy